=== PATIENT | male | born 1960 | race Caucasian/White ===

== ENCOUNTER 2022-09-19 20:38 | Emergency (ER) | payer OTHER ==
[~2022-09-19] VITALS: Ht 170.2 cm; Wt 65.8 kg
[2022-09-19 20:53] VITALS: BP_SYST 148
--- NOTE | 2022-09-19 20:53 | NUR ---
PT TRIAGED BY RN AND ASSISTED TO BED 5 VIA GURNEY. REPORT GIVEN TO BORIS DODSON.
--- NOTE | 2022-09-19 21:11 | NUR ---
ER Dr. COATES at bedside examining patient.
[2022-09-19] MEDS ORDERED: GASTROGRAFIN 120 ML ONE (21:28)
--- NOTE | 2022-09-19 21:28 | NUR ---
CALLED [facility], SPOKE WITH DESK AT [employer] TO FIND OUT IF PT WAS BEING TREATED ONLY FOR GTUBE DISLODGEMENT. CELSA CONFIRMED. MADE CELSA AWARE PT WILL BE DISCHARGED ONCE GTUBE PLACEMENT IS CONFIRMED.
--- NOTE | 2022-09-19 21:36 | NUR ---
RADIOLOGY AT BEDSIDE
--- NOTE | 2022-09-19 23:07 | NUR ---
PT RESTING WITH EYES CLOSED, NO S/S OF DISCOMFORT NOTED.
[2022-09-19 23:56] VITALS: BP_SYST 173
--- NOTE | 2022-09-19 23:59 | NUR ---
Patient given written and verbal discharge instructions and verbalizes understanding. ER DR CRISTINA MURPHY discussed with patient the results and treatment provided. Patient in stable condition. ID arm band removed. Patient educated on pain management and to follow up with PMD. Opportunity for questions provided and answered. Medication side effect fact sheet provided.
== END 2022-09-19 23:56 ==
LOC: SED 20:38
DX: Z43.1 Encounter for attention to gastrostomy (principal); Z79.899 Other long term (current) drug therapy
CPT/HCPCS: 99284; 43762; 74240; Q9963